=== PATIENT | male | born 1995 | race Caucasian/White ===

== ENCOUNTER 2017-05-18 05:47 | Emergency (ER) | payer BC ==
[~2017-05-18] VITALS: Ht 188 cm; Wt 97.7 kg
[2017-05-18 05:50] VITALS: TEMP 98.3
[2017-05-18] MEDS ORDERED: FLEXERIL 1010 MG/TAB PO (07:13)
[2017-05-18 07:52] VITALS: BP 137/98; PULSE 72
== END 2017-05-18 07:55 | disposition home or self-care (01) ==
LOC: COL.ER 05:47
DX: R07.89 Other chest pain (principal); Z98.890 Other specified postprocedural states
CPT/HCPCS: J1885

== ENCOUNTER 2017-05-18 16:00 | Outpatient (RCR) | payer BC ==
[~2017-05-18 16:00] MED LIST: FLEXERIL 1010 MG/TAB PO
== END 2017-06-14 08:00 | disposition home or self-care (01) ==
LOC: WSOT 16:00
DX: M25.531 Pain in right wrist (principal)

== ENCOUNTER 2017-11-21 06:50 | Emergency (ER) | payer BC ==
[~2017-11-21] VITALS: Ht 188 cm; Wt 109.1 kg
[2017-11-21 06:57] VITALS: TEMP 97.5
[2017-11-21] MEDS ORDERED: TYLENOL 500MG500 MG PO (07:02)
[2017-11-21 07:41] LABS: BASO # 0.1 (0.0-0.2); BASO % 0.5 % (0.0-2.0); EOS # 0.3 (0.0-0.7); EOS % 2.9 % (0-4.0); GRAN # 6.2 (1.4-6.5); GRAN % 66.3 % (42.2-75.2); HEMATOCRIT 44.9 % (42.0-52.0); HEMOGLOBIN 15.9 g/dl (13.5-18.0); LYMPH # 2.2 (1.2-3.4); MEAN CELL VOLUME 85 fl (80.0-100.0); MEAN CORPUSCULAR HEMOGLOBIN 30 pg (27.0-31.0); MEAN CORPUSCULAR HGB CONC 35 g/dl (33.0-37.0); MEAN PLATELET VOLUME 9.5 fl (7.4-10.4); MONO # 0.6 (0.1-0.6); PLATELET COUNT 287 K/mm3 (130-400); RED BLOOD COUNT 5.27 M/mm3 (4.20-5.60); REDCELL DISTRIBUTION WIDTH-CV 12.3 % (11.5-14.5)
[2017-11-21 07:49] LABS: ALANINE AMINOTRANSFERASE 35 U/L (21-72); ALKALINE PHOSPHATASE 86 U/L (50-136); ANION GAP 13 mmol/L (7-16); AST,SGOT 23 U/L (15-37); BILIRUBIN,TOTAL 0.4 mg/dL (0.0-1.0); BLOOD UREA NITROGEN 16 mg/dL (9-20); CALCIUM 10.3 mg/dL (8.4-10.2); CARBON DIOXIDE 26 mmol/L (22-30); CHLORIDE 99 mmol/L (98-107); CREATININE, serum 0.87 mg/dL (0.66-1.25); GLUCOSE 135 mg/dL (74-106); POTASSIUM 3.7 mmol/L (3.4-5.0); SODIUM 138 mmol/L (137-145); TOTAL PROTEIN 8.5 gm/dL (6.4-8.2)
[2017-11-21 07:59] LABS: TROPONIN-I < 0.012 ng/mL (0.000-0.034)
[2017-11-21] MEDS ORDERED: PROAIR HFA0.09 MG/AC IH (09:10)
[2017-11-21] MEDS ORDERED: VISTARIL 2525 MG/CAP PO (09:10)
[2017-11-21 10:00] VITALS: BP 120/81; PULSE 80
== END 2017-11-21 10:01 | disposition home or self-care (01) ==
LOC: COL.ER 06:50
PROVIDERS: Physician Assistant
DX: R06.02 Shortness of breath (principal); J45.909 Unspecified asthma, uncomplicated

== ENCOUNTER 2022-12-23 03:53 | Emergency (ER) | payer OTHER ==
[~2022-12-23] VITALS: Ht 188 cm; Wt 95.5 kg
[~2022-12-23 03:53] MED LIST changes: +PROAIR HFA0.09 MG/AC IH; +TYLENOL 500MG500 MG PO; +VISTARIL 2525 MG/CAP PO
[2022-12-23 04:15] LABS: BASO # 0.1 K/mm3 (0.0-0.2); BASO % 0.8 % (0.0-2.0); EOS # 0.1 K/mm3 (0.0-0.7); EOS % 1.3 % (0.0-4.0); GRAN # 3.4 K/mm3 (1.4-6.5); GRAN % 42.6 % (42.2-75.2); HEMOGLOBIN 15.8 g/dl (13.5-18.0); LYMPH # 3.7 K/mm3 (1.2-3.4); LYMPH % 46.4 % (20.0-51.0); MEAN CELL VOLUME 87 fl (80.0-100.0); MEAN CORPUSCULAR HEMOGLOBIN 30 pg (27-31); MEAN CORPUSCULAR HGB CONC 34 g/dl (33.0-37.0); MEAN PLATELET VOLUME 9.4 fl (7.4-10.4); MONO # 0.7 K/mm3 (0.1-0.6); MONO % 8.8 % (1.7-9.3); PLATELET COUNT 253 K/mm3 (130-400); RED BLOOD COUNT 5.31 M/mm3 (4.20-5.60); REDCELL DISTRIBUTION WIDTH-CV 12.3 % (11.5-14.5)
[2022-12-23 04:40] LABS: TROPONIN-I < 0.010 ng/mL (0.00-0.033)
[2022-12-23 04:44] LABS: ALANINE AMINOTRANSFERASE 23 U/L (0-55); ALBUMIN 4.7 gm/dL (3.5-5.0); ALKALINE PHOSPHATASE 73 U/L (40-150); ANION GAP 13 mmol/L (7-16); AST,SGOT 18 U/L (5-34); BILIRUBIN,TOTAL 0.5 mg/dL (0.2-1.2); BLOOD UREA NITROGEN 11 mg/dL (9-21); CARBON DIOXIDE 22 mmol/L (22-29); CHLORIDE 105 mmol/L (98-107); CREATININE, serum 0.92 mg/dL (0.72-1.25); GLUCOSE 95 mg/dL (70-99); LIPASE 24 U/L (8-78); POTASSIUM 3.6 mmol/L (3.5-4.5); SODIUM 140 mmol/L (136-145); TOTAL PROTEIN 7.7 gm/dL (6.2-8.1)
[2022-12-23 04:49] LABS: INR 1.1 (0.8-3.0); PROTHROMBIN TIME 11.9 SECONDS (9.7-12.8)
[2022-12-23 04:52] LABS: D-DIMER < 200.00 ng/mLDDu (200-230); PARTIAL THROMBOPLASTIN TIME 35.4 SECONDS (26.0-37.0)
[2022-12-23 05:22] VITALS: BP 128/80; PULSE 69
== END 2022-12-23 05:22 | disposition home or self-care (01) ==
LOC: COL.ER 03:53
PROVIDERS: Emergency Medicine
DX: R07.89 Other chest pain (principal); B34.9 Viral infection, unspecified; R06.00 Dyspnea, unspecified; R42 Dizziness and giddiness; R53.83 Other fatigue; R00.0 Tachycardia, unspecified
CPT/HCPCS: J2405; J7030